=== PATIENT | female | born 1975 | race American Indian/Alaskan Native ===

== ENCOUNTER 2016-07-21 10:12 | Outpatient (CLI) | payer OTHER ==
--- NOTE | 2016-07-21 14:54 | Mammography Report ---
Bilateral mammogram: No previous studies available. CAD study utilized. Findings: Heterogeneous breast parenchyma bilaterally. Focal asymmetry upper posterior right breast benign calcifications. Benign axillary nodes. Impression: Focal ill-defined dense asymmetry right breast. Comparison with previous studies is recommended. If previous studies are not available spot magnification ascites sonographic examination advised. BI-RADS CATEGORY: 0 = Needs additional imaging evaluation ACR BI-RADS MAMMOGRAPHIC CODES: 0 = Needs additional imaging evaluation; 1 = Negative; 2 = Benign; 3 = Probably benign; 4 = Suspicious; 5 = Malignant; 6 = Known biopsy-proven malignancy COMMENT: 1. Dense breast tissue, i.e., adenosis, fibrocystic changes, etc., may obscure an underlying neoplasm. 2. Approximately 10% of cancers are not detected with mammography. 3. A negative mammography report should not delay biopsy if a clinically suspicious mass is present. COMMENT: Patient follow-up letters are generated in [facility].
--- NOTE | 2016-07-22 08:26 | Ultrasound Report ---
ULTRASOUND PELVIC COMPLETE ULTRASOUND TRANSVAGINAL HISTORY: Uterine fibroids. TECHNIQUE: Transabdominal and transvaginal ultrasound with color doppler interrogation. The uterus measures 9.8 x 5.3 x 6.6. A small intramural uterine fibroid is identified measuring 1.1 cm in the right lateral wall. No large submucosal or exophytic fibroid. The endometrial stripe measures 14 mm. No mass or complexity. The cervix is unremarkable. The right ovary measures 2.7 x 1.6 x 2.3 cm. The left ovary measures 2.2 x 1.3 x 1.6 cm. A 1.5 cm cyst is identified in the left ovary. No pelvic fluid collection. IMPRESSION: Small uterine fibroid as described. 1.5 cm left ovarian cyst.
== END 2016-07-21 10:13 | disposition home or self-care (01) ==
LOC: MAMMO 10:12
PROVIDERS: ATTEND Family Medicine Adult Medicine
DX: Z12.31 Encounter for screening mammogram for malignant neoplasm of breast (principal); D25.9 Leiomyoma of uterus, unspecified; N83.202 Unspecified ovarian cyst, left side
CPT/HCPCS: 76830; 76856; G0202; 77067

== ENCOUNTER 2016-08-19 08:42 | Outpatient (CLI) | payer OTHER ==
--- NOTE | 2016-08-19 10:56 | Ultrasound Report ---
Right mammogram and right breast ultrasound: Based on recent screening exam additional compression CC and lateral views of the right breast were performed for an area of lateral asymmetry. The additional imaging demonstrates normal appearing fibroglandular tissue. No distortion and no mass identified. A couple of benign appearing calcifications. Ultrasound imaging of the right breast failed to identify any echogenic abnormality. Impressions: Benign mild asymmetry. Recommendation: Annual mammogram followup. BI-RADS CATEGORY: 2 = Benign ACR BI-RADS MAMMOGRAPHIC CODES: 0 = Needs additional imaging evaluation; 1 = Negative; 2 = Benign; 3 = Probably benign; 4 = Suspicious; 5 = Malignant; 6 = Known biopsy-proven malignancy COMMENT: 1. Dense breast tissue, i.e., adenosis, fibrocystic changes, etc., may obscure an underlying neoplasm. 2. Approximately 10% of cancers are not detected with mammography. 3. A negative mammography report should not delay biopsy if a clinically suspicious mass is present.
== END 2016-08-19 08:43 | disposition home or self-care (01) ==
LOC: MAMMO 08:42
PROVIDERS: ATTEND Family Medicine Adult Medicine
DX: N64.89 Other specified disorders of breast (principal); R92.8 Other abnormal and inconclusive findings on diagnostic imaging of breast
CPT/HCPCS: 76642; G0206

== ENCOUNTER 2021-08-04 10:44 | Outpatient (CLI) | payer OTHER ==
--- NOTE | 2021-08-04 13:30 | Cat Scan Report ---
CT CHEST WITHOUT CONTRAST INDICATION / CLINICAL INFORMATION: CHEST PAIN AND NECK PAIN R07.9 M51.2. TECHNIQUE: Axial CT images were obtained through the chest without contrast. All CT scans at this [facility] ation are performed using CT dose reduction for ALARA by means of automated exposure control. COMPARISON: None available. FINDINGS: HEART: No significant abnormality. CORONARY ARTERY CALCIFICATION: Absent -- None. THORACIC AORTA: No significant abnormality. MEDIASTINUM / JOHN: No significant abnormality. PLEURA: No pleural effusion. No pneumothorax. LUNGS: No acute air space or interstitial disease. No suspicious pulmonary lesion. ADDITIONAL FINDINGS: None. UPPER ABDOMEN: No significant abnormality. SKELETAL SYSTEM: No significant abnormality. IMPRESSION: 1. No significant abnormality. Signer Name: Brien Sadler Jr, MD Signed: 08/04/2021 1:26 PM Workstation Name: [id number]
== END 2021-08-04 10:45 | disposition home or self-care (01) ==
LOC: CT 10:44
PROVIDERS: ATTEND Family Medicine Adult Medicine
DX: R07.9 Chest pain, unspecified (principal); M54.2 Cervicalgia
CPT/HCPCS: 71250